=== PATIENT | female | born 1950 | race Caucasian/White ===

== ENCOUNTER 2021-08-13 09:24 | Emergency (ER) | payer OTHER ==
[2021-08-13] MEDS ORDERED: ONDANSETRON 4 MG/2 ML VIAL ONE (10:15)
[2021-08-13] MEDS ORDERED: FENTANYL CITR 100 MCG/2 ML ONE (10:15)
[2021-08-13 10:30] LABS: Absolute Lymphocytes (CBC) 1.6 K/uL (0.7-4.9); Basophils % 0.4 % (0-1.3); Hematocrit 41.6 % (36.0-45.0); Lymphocytes % 21.7 % (15.3-44.8); RBC Red Blood Cell Count 4.55 M/uL (3.86-4.86)
[2021-08-13 10:35] LABS: Protime INR 2.19
[2021-08-13 10:50] LABS: ALT/SGPT 20 U/L (12-78); AST/SGOT 13 U/L (15-37); Albumin 3.5 g/dL (3.4-5.0); Alkaline Phosphatase 107 U/L (45-117); BUN Blood Urea Nitrogen 21 mg/dL (7-18); Bicarbonate 21 mmol/L (21-32); Bilirubin Direct 0.1 mg/dL (0-0.2); Bilirubin Total 0.6 mg/dL (0.2-1.0); Glucose Level 103 mg/dL (74-106); Magnesium 2.4 mg/dL (1.8-2.4); NT PRO-BNP 255 pg/mL (<125); Potassium 4.1 mmol/L (3.5-5.1); Protein, Total 7.8 g/dL (6.4-8.2); Sodium Level 143 mmol/L (136-145); Troponin (Emerg Dept Use Only) < 0.02 ng/mL (0.0-0.045)
--- NOTE | 2021-08-13 11:28 | RAD REPORT ---
EXAM DESCRIPTION: RAD - Chest Single View - 08/13/2021 10:40 am CLINICAL HISTORY: left shoulder pain COMPARISON: <Comparisons> FINDINGS: Lines: None. Lungs: No evidence of edema or pneumonia. Pleural: No significant pleural effusions or pneumothorax. Cardiac: The heart size is within normal limits. Bones: No acute fractures. Other: IMPRESSION: No acute cardiopulmonary disease.
--- NOTE | 2021-08-13 13:20 | ER ---
Nurse's Notes [facility] Name: Henny Strauss Age: 71 yrs Sex: Female : 1950 Arrival Date: 08/13/2021 Time: 09:26 Bed 12 Private MD: Diagnosis: Pain in left shoulder;Muscle spasm of back-left trapezius Presentation: 08/13 09:49 Chief complaint: Patient states: My left shoulder has started to hurt over the past ld1 month, today it is hurting worse. Pt denies injury to left shoulder. Coronavirus screen: At this time, the client does not indicate any symptoms associated with coronavirus-19. Ebola Screen: No symptoms or risks identified at this time. Initial Sepsis Screen: Does the patient meet any 2 criteria? No. Patient's initial sepsis screen is negative. Does the patient have a suspected source of infection? No. Patient's initial sepsis screen is negative. Risk Assessment: Do you want to hurt yourself or someone else? Patient reports no desire to harm self or others. Onset of symptoms was August 13, 2021. 09:49 Method Of Arrival: Ambulatory ld1 09:49 Acuity: JEANETTE 3 ld1 Triage Assessment: 09:58 General: Appears in no apparent distress. comfortable, Behavior is calm, cooperative, ld1 appropriate for age. Pain: Complains of pain in posterior aspect of left shoulder Pain does not radiate. Pain currently is 8 out of 10 on a pain scale. Quality of pain is described as sharp, throbbing, grinding Pain began x 1 month Is continuous. EENT: No signs and/or symptoms were reported regarding the EENT system. Neuro: Level of Consciousness is awake, alert, obeys commands, Oriented to person, place, time, situation, Appropriate for age. Cardiovascular: Capillary refill < 3 seconds Patient's skin is warm and dry. Respiratory: Airway is patent Respiratory effort is even, unlabored, Respiratory pattern is regular, symmetrical. GI: Abdomen is flat, non-distended. : No signs and/or symptoms were reported regarding the genitourinary system. Derm: No signs and/or symptoms reported regarding the dermatologic system. Musculoskeletal: Reports pain in anterior aspect of left shoulder. Historical: - Allergies: 09:58 Tylenol-Codeine; ld1 - PMHx: 09:58 Atrial fibrillation; ld1 - Immunization history:: Adult Immunizations up to date, Client reports receiving the 2nd dose of the Covid vaccine. - Social history:: Smoking status: Patient denies any tobacco usage or history of. Patient/guardian denies using alcohol. Screenin:02 Abuse screen: Denies threats or abuse. Denies injuries from another. Nutritional ld1 screening: No deficits noted. Tuberculosis screening: No symptoms or risk factors identified. Fall Risk None identified. Assessment: 10:02 Reassessment: See triage assessment. ld1 10:24 Reassessment: Patient appears in no apparent distress at this time. Patient and/or ld1 family updated on plan of care and expected duration. Pain level reassessed. Patient is alert, oriented x 3, equal unlabored respirations, skin warm/dry/pink. 11:41 Reassessment: Patient appears in no apparent distress at this time. Patient and/or ld1 family updated on plan of care and expected duration. Pain level reassessed. Patient is alert, oriented x 3, equal unlabored respirations, skin warm/dry/pink. Patient denies pain at this time. Patient states feeling better. 13:14 Reassessment: Patient appears in no apparent distress at this time. No changes from ld1 previously documented assessment. Patient and/or family updated on plan of care and expected duration. Pain level reassessed. Patient is alert, oriented x 3, equal unlabored respirations, skin warm/dry/pink. Vital Signs: 09:49 BP 157 / 74; Pulse 67; Resp 18; Temp 98.7(TE); Pulse Ox 100% on R/A; Weight 79.83 kg; ld1 Height 5 ft. 5 in. (165.10 cm); Pain 8/10; 10:24 BP 124 / 82; Pulse 84; Resp 15; Pulse Ox 100% on R/A; Pain 2/10; ld1 11:41 BP 146 / 69; Pulse 57; Resp 21; Pulse Ox 100% on R/A; ld1 13:14 BP 134 / 76; Pulse 67; Resp 21; Pulse Ox 100% on R/A; ld1 09:49 Body Mass Index 29.29 (79.83 kg, 165.10 cm) ld1 ED Course: 09:26 Patient arrived in ED. mr 09:38 Merced Bal, RN is Primary Nurse. ld1 09:44 Edu Mills, MATT is PHCP. pm1 09:44 Fran Gan MD is Attending Physician. pm1 09:53 Triage completed. ld1 09:58 Arm band placed on right wrist. ld1 10:02 Patient has correct armband on for positive identification. Placed in gown. Bed in low ld1 position. Call light in reach. Side rails up X2. Pulse ox on. NIBP on. Door closed. Noise minimized. Warm blanket given. 10:02 No provider procedures requiring assistance completed. ld1 10:15 Initial lab(s) drawn, by me, sent to lab. Inserted saline lock: 20 gauge in right dh3 antecubital area, using aseptic technique. Blood collected. 10:40 XRAY Chest (1 view) In Process Unspecified. EDMS 13:25 IV discontinued, intact, bleeding controlled, No redness/swelling at site. Pressure ld1 dressing applied. Administered Medications: 10:24 Drug: fentaNYL (PF) 25 mcg Route: IVP; Site: right antecubital; ld1 10:24 Follow up: Response: No adverse reaction ld1 10:24 Drug: Zofran (Ondansetron) 4 mg Route: IVP; Site: right antecubital; ld1 10:24 Follow up: Response: No adverse reaction ld1 Outcome: 13:20 Discharge ordered by MD. pm1 13:25 Discharged to home ambulatory, with family. ld1 13:25 Condition: stable 13:25 Discharge instructions given to patient, family, Instructed on discharge instructions, follow up and referral plans. Demonstrated understanding of instructions, follow-up care. 13:25 Patient left the ED. ld1 Signatures: Dispatcher [employer] EDSC Paula VilchisEdu, MATT CMV DRIVER pm1 Edna Farmer [facility] Merced Bal RN RN ld1 Corrections: (The following items were deleted from the chart) 09:59 09:58 PMHx: Atrial fibrillation; ld1 ld1 09:59 09:58 PSHx: Right knee replacement; ld1 ld1 13:36 09:49 Acuity: JEANETTE 4 ld1 ld1
--- NOTE | 2021-08-13 13:20 | EDPHYS ---
Physician Documentation [facility] Name: Henny Strauss Age: 71 yrs Sex: Female : 1950 Arrival Date: 08/13/2021 Time: 09:26 Bed 12 Private MD: ED Physician Fran Gan HPI: 08/13 10:16 This 71 yrs old Female presents to ER via Ambulatory with complaints of Left pm1 shoulder pain. 10:16 The patient or guardian complains of pain. left shoulder and left trapezius. Context: pm1 The problem was sustained at an unknown site, resulted from an unknown reason, The patient experiences decreased range of motion, when attempts to raise arm, The patient reports no obvious deformity. Onset: The symptoms/episode began/occurred 1 month(s) ago, and became worse today. Modifying factors: the symptoms are alleviated by OTC meds, tylenol, The symptoms are aggravated by movement. Associated signs and symptoms: Pertinent negatives: abdominal pain, chest pain, Numbness in left arm shortness of breath, tingling, Weakness in left arm. Severity of symptoms: in the emergency department the symptoms are actually worse. Treatment prior to arrival includes: over the counter medications, Tylenol. The patient has not recently seen a physician. Historical: - Allergies: :58 Tylenol-Codeine; ld1 - PMHx: 09:58 Atrial fibrillation; ld1 - Immunization history:: Adult Immunizations up to date, Client reports receiving the 2nd dose of the Covid vaccine. - Social history:: Smoking status: Patient denies any tobacco usage or history of. Patient/guardian denies using alcohol. ROS: 10:16 Constitutional: Negative for fever, chills, and weight loss. pm1 10:16 Cardiovascular: Negative for chest pain, palpitations, and edema, Respiratory: Negative for shortness of breath, cough, wheezing, and pleuritic chest pain, Abdomen/GI: Negative for abdominal pain, nausea, vomiting, diarrhea, and constipation, Back: Negative for injury and pain. 10:16 Skin: Negative for injury, rash, and discoloration, Neuro: Negative for headache, weakness, numbness, tingling, and seizure. 10:16 MS/extremity: Positive for decreased range of motion, pain, of the left trapezius and left shoulder, Crepitus with moving arm, Negative for deformity. 10:16 All other systems are negative. Exam: 10:16 Constitutional: This is a well developed, well nourished patient who is awake, alert, pm1 and in no acute distress. Head/Face: Normocephalic, atraumatic. 10:16 Skin: Warm, dry with normal turgor. Normal color with no rashes, no lesions, and no evidence of cellulitis. 10:16 Eyes: Exam is negative for acute changes, Extraocular movements: no acute changes, Conjunctiva: no acute changes, no injection. 10:16 ENT: Exam is negative for acute changes, Mouth: no acute changes, Lips: normal, moist, Oral mucosa: normal, pink and intact, moist. 10:16 Neck: External neck: tenderness, of the left trapezius, C-spine: no acute changes. 10:16 Cardiovascular: Exam negative for acute changes, Rate: normal, Rhythm: regular, Pulses: no pulse deficits are appreciated. 10:16 Respiratory: Exam negative for acute changes, respiratory distress, shortness of breath. 10:16 Abdomen/GI: Inspection: abdomen appears normal, Palpation: abdomen is soft and non-tender, in all quadrants. 10:16 Back: muscle spasm, is appreciated in the left trapezius. 10:16 Musculoskeletal/extremity: Extremities: grossly normal except: noted in the left shoulder: tenderness, Decreased range of motion with abduction due to pain. Crepitus to left shoulder with rotation. 10:16 Neuro: Exam negative for acute changes, Orientation: is normal, Mentation: is normal, Motor: is normal, moves all fours. Vital Signs: 09:49 BP 157 / 74; Pulse 67; Resp 18; Temp 98.7(TE); Pulse Ox 100% on R/A; Weight 79.83 kg; ld1 Height 5 ft. 5 in. (165.10 cm); Pain 8/10; 10:24 BP 124 / 82; Pulse 84; Resp 15; Pulse Ox 100% on R/A; Pain 2/10; ld1 11:41 BP 146 / 69; Pulse 57; Resp 21; Pulse Ox 100% on R/A; ld1 13:14 BP 134 / 76; Pulse 67; Resp 21; Pulse Ox 100% on R/A; ld1 09:49 Body Mass Index 29.29 (79.83 kg, 165.10 cm) ld1 MDM: 09:57 Patient medically screened. pm1 13:19 Data reviewed: vital signs. Data interpreted: Pulse oximetry: on room air is 100 %. pm1 Interpretation: normal. Counseling: I had a detailed discussion with the patient and/or guardian regarding: the historical points, exam findings, and any diagnostic results supporting the discharge/admit diagnosis, lab results, radiology results, the need for outpatient follow up, to return to the emergency department if symptoms worsen or persist or if there are any questions or concerns that arise at home. 08/13 10:14 Order name: Basic Metabolic Panel; Complete Time: 10:55 pm1 08/13 10:14 Order name: CBC with Diff; Complete Time: 10:38 pm1 08/13 10:14 Order name: LFT's; Complete Time: 10:55 pm1 08/13 10:14 Order name: Magnesium; Complete Time: 10:55 pm1 08/13 10:14 Order name: NT PRO-BNP; Complete Time: 10:55 pm1 08/13 10:14 Order name: PT-INR; Complete Time: 10:38 pm1 08/13 10:14 Order name: Troponin (emerg Dept Use Only); Complete Time: 10:55 pm1 08/13 10:14 Order name: XRAY Chest (1 view); Complete Time: 11:35 pm1 08/13 10:14 Order name: EKG; Complete Time: 10:15 pm1 08/13 10:14 Order name: Cardiac monitoring; Complete Time: 10:23 pm1 08/13 10:14 Order name: EKG - Nurse/Tech; Complete Time: 10:23 pm1 08/13 10:14 Order name: IV Saline Lock; Complete Time: 10:23 pm1 08/13 10:14 Order name: Labs collected and sent; Complete Time: 10:23 pm1 08/13 10:14 Order name: O2 Per Protocol; Complete Time: 10:23 pm1 08/13 10:14 Order name: O2 Sat Monitoring; Complete Time: 10:23 pm1 Administered Medications: 10:24 Drug: fentaNYL (PF) 25 mcg Route: IVP; Site: right antecubital; ld1 10:24 Follow up: Response: No adverse reaction ld1 10:24 Drug: Zofran (Ondansetron) 4 mg Route: IVP; Site: right antecubital; ld1 10:24 Follow up: Response: No adverse reaction ld1 Disposition Summary: 08/13/21 13:20 Discharge Ordered Location: Home pm1 Problem: new pm1 Symptoms: have improved pm1 Condition: Stable pm1 Diagnosis - Pain in left shoulder pm1 - Muscle spasm of back - left trapezius pm1 Followup: pm1 - With: Emergency Department - When: As needed - Reason: Worsening of condition Followup: pm1 - With: Private Physician - When: 2 - 3 days - Reason: Recheck today's complaints, Continuance of care, Re-evaluation by your physician Discharge Instructions: - Discharge Summary Sheet pm1 - Muscle Cramps and Spasms pm1 - Shoulder Pain pm1 - Heat Therapy pm1 Forms: - Medication Reconciliation Form pm1 - Thank You Letter pm1 - Antibiotic Education pm1 - Prescription Opioid Use pm1 Addendum: 08/22/2021 05:24 Co-signature as Attending Physician, Fran Gan MD PA/WOOD BOX MAKER's history reviewed, m a2 patient interviewed, and examined. I agree with assessment and care plan and confirm the diagnosis (es) above. Signatures: Dispatcher [employer] EDMS Edu Mills, WOOD BOX MAKER WOOD BOX MAKER pm1 Fran Gan MD MD ma2 Merced Bal RN RN ld1 Corrections: (The following items were deleted from the chart) 08/13 09:59 09:58 PMHx: Atrial fibrillation; ld1 ld1 09:59 09:58 PSHx: Right knee replacement; ld1 ld1
[2021-08-13 13:32] VITALS: TEMP 98.7; O2SAT 100
[2021-08-13 13:36] VITALS: BP 134/76
--- NOTE | 2021-08-15 18:31 | EKG ---
Test Date: 2021-08-13 Test Time: 10:15:24 Overhead Cleaner Maintainer: JOHANA MEASUREMENT RESULTS: Intervals: Rate: 111 GA: 176 QRSD: 86 QT: 342 QTc: 465 [place]: P: GA: 176 QRS: 53 T: 52 INTERPRETIVE STATEMENTS: Sinus tachycardia Nonspecific ST and T wave abnormality Abnormal ECG No previous ECG available for comparison Electronically Signed On 08-15-21 18:24:15 SOAKER HELPER by Arun Bowles
== END 2021-08-13 13:25 | disposition home or self-care (01) ==
LOC: ER 09:24
DX: M62.830 Muscle spasm of back (principal); Z88.5 Allergy status to narcotic agent
CPT/HCPCS: 93005; 85025; 80048; 36415; 83735; 85610; 80076; 84484; 83880; 71045; 96375; 96374; 99284; J3010; J2405

== ENCOUNTER 2021-09-26 09:23 | Emergency (ER) | payer OTHER ==
[2021-09-26] MEDS ORDERED: SMZ./TMP. 800/160 MG TABLET ONE (10:51)
--- NOTE | 2021-09-26 11:07 | ER ---
Nurse's Notes [facility] Name: Henny Strauss Age: 71 yrs Sex: Female : 1950 Arrival Date: 09/26/2021 Time: 09:28 Bed 2 Private MD: Diagnosis: Acute upper respiratory infection, unspecified Presentation: 09/26 09:36 Chief complaint: Patient states: Sinus congestion and pain. Bilateral ear pain that ww started about 1-2 days ago. Coronavirus screen: Vaccine status: Patient reports receiving the 2nd dose of the covid vaccine. Client denies travel out of the [place] in the last 14 days. Ebola Screen: Patient negative for fever greater than or equal to 101.5 degrees Fahrenheit, and additional compatible Ebola Virus Disease symptoms Patient denies exposure to infectious person. Patient denies travel to an Ebola-affected area in the 21 days before illness onset. Initial Sepsis Screen: Does the patient meet any 2 criteria? No. Patient's initial sepsis screen is negative. Does the patient have a suspected source of infection? No. Patient's initial sepsis screen is negative. Risk Assessment: Do you want to hurt yourself or someone else? Patient reports no desire to harm self or others. Onset of symptoms was September 24, 2021. 09:36 Method Of Arrival: Ambulatory ww 09:36 Acuity: JEANETTE 4 ww Triage Assessment: 09:37 General: Appears in no apparent distress. comfortable, well groomed, well developed, ww well nourished, Behavior is calm, cooperative, appropriate for age. Pain: Complains of pain in right cheek, right ear, nose, left ear and left cheek. EENT: Reports nasal congestion. Neuro: Level of Consciousness is awake, alert, obeys commands, Oriented to person, place, time, situation, Appropriate for age Speech is normal. Cardiovascular: No deficits noted. Capillary refill < 3 seconds. Respiratory: No deficits noted. Airway is patent Respiratory effort is even, unlabored, Respiratory pattern is regular, symmetrical. GI: No deficits noted. No signs and/or symptoms were reported involving the gastrointestinal system. : No deficits noted. No signs and/or symptoms were reported regarding the genitourinary system. Derm: No deficits noted. No signs and/or symptoms reported regarding the dermatologic system. Skin is intact, Skin is pink, warm \\T\\ dry. Historical: - Allergies: 09:37 Azithromycin; ww 09:37 PENICILLINS; ww 09:37 Codeine; ww - PMHx: 09:37 Atrial fibrillation; ww - PSHx: 09:37 Tubal; knee replacement; ww - Immunization history:: Client reports receiving the 2nd dose of the Covid vaccine, Flu vaccine is not up to date. - Social history:: Smoking status: Patient denies any tobacco usage or history of. - Family history:: not pertinent. Screenin:03 Abuse screen: Denies threats or abuse. Nutritional screening: No deficits noted. al4 Tuberculosis screening: No symptoms or risk factors identified. Fall Risk Fall Risk No fall in past 12 months (0 pts). No IV (0 pts). Ambulatory Aid- Crutches/Cane/Walker (15 pts). Gait- Weak (10 pts.). Mental Status- Oriented to own ability (0 pts). Total Caicedo Fall Scale indicates Low Risk Score (25-44 pts). Assessment: 09:58 General: Appears in no apparent distress. comfortable, Behavior is calm, cooperative, al4 appropriate for age. Pain: Denies pain. Neuro: Level of Consciousness is awake, alert, obeys commands, Oriented to person, place, time, situation. Cardiovascular: Heart tones present Capillary refill < 3 seconds Patient's skin is warm and dry. Respiratory: Airway is patent Respiratory effort is even, unlabored, Respiratory pattern is regular, symmetrical, Breath sounds are clear bilaterally. GI: No signs and/or symptoms were reported involving the gastrointestinal system. : No signs and/or symptoms were reported regarding the genitourinary system. EENT: Reports nasal congestion since "2 days ago" Bilateral ear pain, drainage, and fullness that started 2 days ago. . Derm: No signs and/or symptoms reported regarding the dermatologic system. Musculoskeletal: No signs and/or symptoms reported regarding the musculoskeletal system. 11:00 Reassessment: No changes from previously documented assessment. Patient and/or family al4 updated on plan of care and expected duration. Pain level reassessed. Patient is alert, oriented x 3, equal unlabored respirations, skin warm/dry/pink. Patient denies pain at this time. 11:28 Reassessment: Please call Tom () with test results: [phone]. al4 Vital Signs: 09:36 BP 136 / 60; Pulse 70; Resp 18; Temp 97.8(O); Pulse Ox 100% on R/A; Weight 77.11 kg ww (R); Height 5 ft. 4 in. (162.56 cm); 11:15 BP 163 / 62; Pulse 62; Resp 14 S; Pulse Ox 100% on R/A; Pain 0/10; al4 09:36 Body Mass Index 29.18 (77.11 kg, 162.56 cm) ED Course: 09:28 Patient arrived in ED. am2 09:37 Triage completed. ww 09:37 Arm band placed on right wrist. ww 10:00 Francis Harkins MD is Attending Physician. marcelo 10:19 Francisco Tomlinson is Primary Nurse. al4 11:00 Bed in low position. Call light in reach. patients at bedside. al4 11:27 COVID-19/FLU A+B/RSV (Document "Date of Onset" if Symptomatic) Sent. al4 11:44 No provider procedures requiring assistance completed. Patient did not have IV access al4 during this emergency room visit. Administered Medications: 11:15 Drug: Bactrim (trimethoprim-sulfamethoxazole) (160 mg-800 mg (DS) 1 tablet Route: PO; al4 11:44 Follow up: Response: No adverse reaction al4 Outcome: 11:06 Discharge ordered by . [facility] 11:44 Discharged to home ambulatory, with significant other. al4 11:44 Condition: stable 11:44 Discharge instructions given to patient, significant other, Instructed on discharge instructions, follow up and referral plans. medication usage. 11:49 Patient left the ED. al4 Signatures: Francis Harkins MD MD cha Moreno, Amanda Francisco Ruiz al4 Taryn Winn, RN RN ww Corrections: (The following items were deleted from the chart) 10:21 09:58 EENT: Reports nasal congestion since "2 days ago" al4 al4 11:33 11:15 BP 163 / 62; Pulse 62bpm; Resp 20bpm; Pulse Ox 100%; Pain 0/10; al4 al4 11:44 11:15 BP 163 / 62; Pulse 62bpm; Resp 20bpm; Spontaneous; Pulse Ox 100% RA; Pain 0/10; al4 al4 11:48 10:03 Fall Risk al4 al4
--- NOTE | 2021-09-26 11:07 | EDPHYS ---
Physician Documentation [facility] Name: Henny Strauss Age: 71 yrs Sex: Female : 1950 Arrival Date: 09/26/2021 Time: 09:28 Bed 2 Private MD: CATALINO Physician Francis Harkins HPI: 09/26 11:02 This 71 yrs old Female presents to ER via Ambulatory with complaints of Sinus marcelo Congestion. 11:02 The patient or guardian reports cough, described as mild. Onset: The symptoms/episode marcelo began/occurred 23 day(s) ago. Severity of symptoms: At their worst the symptoms were mild, in the emergency department the symptoms are unchanged. Modifying factors: The symptoms are alleviated by nothing, the symptoms are aggravated by nothing. Associated signs and symptoms: Pertinent positives: rhinorrhea. The patient has experienced similar episodes in the past, a few times. Historical: - Allergies: 09:37 Azithromycin; ww 09:37 PENICILLINS; ww 09:37 Codeine; ww - PMHx: 09:37 Atrial fibrillation; ww - PSHx: 09:37 Tubal; knee replacement; ww - Immunization history:: Client reports receiving the 2nd dose of the Covid vaccine, Flu vaccine is not up to date. - Social history:: Smoking status: Patient denies any tobacco usage or history of. - Family history:: not pertinent. ROS: 11:02 Constitutional: Negative for fever, chills, and weight loss, Eyes: Negative for injury, marcelo pain, redness, and discharge, Neck: Negative for injury, pain, and swelling, Cardiovascular: Negative for chest pain, palpitations, and edema, Respiratory: Negative for shortness of breath, cough, wheezing, and pleuritic chest pain, Abdomen/GI: Negative for abdominal pain, nausea, vomiting, diarrhea, and constipation, Back: Negative for injury and pain, : Negative for injury, bleeding, discharge, and swelling, MS/Extremity: Negative for injury and deformity, Skin: Negative for injury, rash, and discoloration, Neuro: Negative for headache, weakness, numbness, tingling, and seizure. 11:02 ENT: Positive for nasal discharge, rhinorrhea. Exam: 11:02 Constitutional: This is a well developed, well nourished patient who is awake, alert, marcelo and in no acute distress. Head/Face: Normocephalic, atraumatic. Eyes: Pupils equal round and reactive to light, extra-ocular motions intact. Lids and lashes normal. Conjunctiva and sclera are non-icteric and not injected. Cornea within normal limits. Periorbital areas with no swelling, redness, or edema. ENT: Nares patent. No nasal discharge, no septal abnormalities noted. Tympanic membranes are normal and external auditory canals are clear. Oropharynx with no redness, swelling, or masses, exudates, or evidence of obstruction, uvula midline. Mucous membranes moist. Neck: Trachea midline, no thyromegaly or masses palpated, and no cervical lymphadenopathy. Supple, full range of motion without nuchal rigidity, or vertebral point tenderness. No Meningismus. Chest/axilla: Normal chest wall appearance and motion. Nontender with no deformity. No lesions are appreciated. Cardiovascular: Regular rate and rhythm with a normal S1 and S2. No gallops, murmurs, or rubs. Normal PMI, no JVD. No pulse deficits. Respiratory: Lungs have equal breath sounds bilaterally, clear to auscultation and percussion. No rales, rhonchi or wheezes noted. No increased work of breathing, no retractions or nasal flaring. Abdomen/GI: Soft, non-tender, with normal bowel sounds. No distension or tympany. No guarding or rebound. No evidence of tenderness throughout. Back: No spinal tenderness. No costovertebral tenderness. Full range of motion. Skin: Warm, dry with normal turgor. Normal color with no rashes, no lesions, and no evidence of cellulitis. MS/ Extremity: Pulses equal, no cyanosis. Neurovascular intact. Full, normal range of motion. Neuro: Awake and alert, GCS 15, oriented to person, place, time, and situation. Cranial nerves II-XII grossly intact. Motor strength 5/5 in all extremities. Sensory grossly intact. Cerebellar exam normal. Normal gait. Psych: Awake, alert, with orientation to person, place and time. Behavior, mood, and affect are within normal limits. Vital Signs: 09:36 BP 136 / 60; Pulse 70; Resp 18; Temp 97.8(O); Pulse Ox 100% on R/A; Weight 77.11 kg ww (R); Height 5 ft. 4 in. (162.56 cm); 11:15 BP 163 / 62; Pulse 62; Resp 14 S; Pulse Ox 100% on R/A; Pain 0/10; al4 09:36 Body Mass Index 29.18 (77.11 kg, 162.56 cm) ww MDM: 10:00 Patient medically screened. [facility] 09/26 10:45 Order name: COVID-19/FLU A+B/RSV (Document "Date of Onset" if Symptomatic) [facility] Administered Medications: 11:15 Drug: Bactrim (trimethoprim-sulfamethoxazole) (160 mg-800 mg (DS) 1 tablet Route: PO; al4 11:44 Follow up: Response: No adverse reaction al4 Disposition Summary: 09/26/21 11:06 Discharge Ordered Location: Home [facility] Problem: new [facility] Symptoms: have improved [facility] Condition: Stable [facility] Diagnosis - Acute upper respiratory infection, unspecified marcelo Followup: [facility] - With: Private Physician - When: 2 - 3 days - Reason: Recheck today's complaints, Continuance of care, Re-evaluation by your physician Discharge Instructions: - Discharge Summary Sheet marcelo - Upper Respiratory Infection, Adult marcelo - Cool Mist Vaporizer [facility] - Upper Respiratory Infection, Adult, Pxpe-ze-[id number] [facility] - Cough, Adult [facility] Forms: - Medication Reconciliation Form [facility] - Thank You Letter [facility] - Antibiotic Education [facility] - Prescription Opioid Use [facility] Prescriptions: - Bromfed DM 2-30-10 mg/5 mL Oral syrup - take 7.5 milliliter by ORAL route every 6 hours; 160 milliliter; Refills: 0, [facility] Product Selection Permitted - Bactrim DS 800-160 mg Oral Tablet - take 1 tablet by ORAL route every 12 hours for 10 days; 20 tablet; Refills: 0, [facility] Product Selection Permitted Signatures: Dispatcher [employer] Francis Bashir MD MD cha Ledbetter, Alexis alTaryn Hinson, RN RN ww
[2021-09-26 11:54] VITALS: TEMP 97.8; O2SAT 100
[2021-09-26 11:55] VITALS: BP 163/62
[2021-09-26 12:34] LABS: SARS-COV-2 RT PCR NEGATIVE (NEGATIVE)
== END 2021-09-26 11:49 | disposition home or self-care (01) ==
LOC: ER 09:23
DX: J06.9 Acute upper respiratory infection, unspecified (principal); Z20.822 Contact with and (suspected) exposure to COVID-19; I48.91 Unspecified atrial fibrillation; Z88.0 Allergy status to penicillin; Z88.1 Allergy status to other antibiotic agents; Z88.5 Allergy status to narcotic agent
CPT/HCPCS: 0241U; 99283

== ENCOUNTER 2023-02-13 14:05 | Inpatient (IN) | payer OTHER ==
[2023-02-14] MEDS ORDERED: ACETAMINOPHEN 325 MG TABLET PO PRN (11:17)
[2023-02-14] MEDS ORDERED: IPRATROPIUM BROM 0.5MG/2.5ML NEB PRN ×2 (11:30→16:00)
[2023-02-14] MEDS ORDERED: POLYETHYL GLY 3350 17 GM/DOSE PO PRN (11:36)
[2023-02-14 13:30] VITALS: BMI 24.8
[2023-02-14 14:58] LABS: Potassium 3.7 mEq/L (3.5-5.1)
[2023-02-14] MEDS: RIVAROXABAN 10 MG TABLET PO SCH (17:29)
[2023-02-14] MEDS: CEFEPIME 1 GM in NA CHLORIDE 0.9% 100 ML IV SCH (17:30)
[2023-02-14] MEDS: ATORVASTATIN 80 MG TAB PO SCH (19:50)
[2023-02-14] MEDS: MELATONIN 3 MG TABLET PO SCH (19:50)
[2023-02-14] MEDS: DOCUSATE NA/SENNA CONC 1 TAB PO SCH (19:50)
[2023-02-14] MEDS: NYSTATIN PWDR 100000 UNIT/GM TOP SCH (19:52)
[2023-02-14] MEDS ORDERED: NA CHLORIDE 0.9% 250 ML ONE (21:25)
[2023-02-15] MEDS: CEFEPIME 1 GM in NA CHLORIDE 0.9% 100 ML IV SCH ×3 (00:25→17:33)
--- NOTE | 2023-02-15 03:33 | HP ---
Date of Admission: 02/14/2023 Jepr-dl-Tawe History and Physical. Time Of Service: 1 p.m. Chief Complaint: "I am very weak. I have pain in my belly." History Of Present Illness: Ms. Strauss is a 72-year-old right-handed patient with coronary artery di sease, atrial fibrillation, hypertension, dyslipidemia, and dementia, who has a complicated medical h istory due to multiple cardiovascular issues, systemic infections, placement of drains. She was init ially admitted to [facility] for elective coronary artery evaluation and treatment in November 2022 when she was identified to have 3-vessel coronary artery disease with coronary artery bypass grafting being required. However, her workup revealed significant comorbidities and that was delayed. She developed a retroperitoneal bleed due to femoral artery injury and had vascular interve ntion for arterial repair. She was transferred to [facility] in [place] for assisted, t hen sent by EMS to [facility] due to fever and altered mental status. She was found to have a right anteri or pelvic abscess and hypocalcemia. She did have a drain placed at [facility] on 01/11/2023. Th is was further complicated by an abscess with E coli in the intraabdominal area. The drain was excha nged and she was eventually transferred to [facility] for continued antibiotics and close medical management. She did require cefepime and vancomycin and that is to continue until February 21, and today is February 14. She also requires aggressive wound care and Xarelto for atrial fibrill ation. She requires significant pain management and drain management. Due to her complicated and pr olonged hospitalization, she has developed significant debility and now requires aggressive physical and occupational along with speech therapy to help her return towards baseline. She also needs caref assisted management for her wound VAC and bilateral pressure ulcers on the buttocks due to prolonged extended peers in the bed. She has very poor p.o. intake and is malnourished and anemic an d also has confusion with dizziness, significant decrease and decline in mobility and in her ability to perform her activities of daily living. Due to these reasons, she is determined to be a more appr opriate candidate for inpatient rehabilitation versus admission to assisted facility. Past Medical History: Atrial fibrillation, hypertension, dyslipidemia, depression, anxiety, dementia , osteoarthritis, multivessel coronary artery disease. She is still awaiting coronary artery bypass grafting. She has intraabdominal abscess with a wound VAC in place. She has 2 antibiotics to contin ue for the next 7 days. Past Surgical History: Appendectomy, tonsillectomy, tubal ligation, right knee surgery. Allergies: CODEINE, ERYTHROMYCIN, AND PENICILLIN. Family History: Not pertinent. Social History: No alcohol, tobacco, or IV drug use. She does have a family and lives with family. X-ray/imaging: On February 05, a CT scan of the abdomen and pelvis showed a right pelvis fluid collection, consistent with abscess and a surgical drain coiling in place. Laboratory Studies: White blood cell count 8.79, hemoglobin 10.2, hematocrit 30.3, platelets 240. S odium 137, potassium 4.5, glucose 84, BUN 16, creatinine 0.71, calcium 8.1, albumin 2.7. Current Medications: Tylenol 650 every 6 hours as needed, Cordarone 100 mg daily, Artificial Tears 1 drop in each eye daily, aspirin 81 mg daily, Lipitor 80 mg at bedtime, cefepime 1 g every 8 hours fo r the next 7 days, Atrovent nebulizer 0.5 mg nebulized every 6 hours as needed, melatonin 3 mg at bed time, Mobic 15 mg daily, nystatin power apply topically twice daily as needed, Xarelto 10 mg daily, S enokot-S 2 at bedtime, vancomycin 1 g every 24 hours. Review of Systems: Ms. Strauss notes, some pain in the abdominal area where the drain is in place, myalgias and arthralgi as. She denies rash, any headaches, some depression . She does not have any current fever s or chills. No active genitourinary or gastrointestinal complaints and no other positives other wilbur n stated. Physical Examination: Vital Signs: Blood pressure 114/54, pulse 70, respiratory rate 16, temperature 98.6, ox saturation 9 8%. General: Ms. Strauss is resting in bed. She has no significant distress. She does appear normal. HEENT: She does have poor dentition. Otherwise, she appears normocephalic, atraumatic. Sclerae ani cteric. Oropharynx is moist. Neck: Supple. Chest: Decreased breath sounds bilaterally. Abdomen: Obese. Extremities: Show no significant edema or cyanosis. Neurological: She is alert and oriented to situation as well as some commands. Cranial nerves, no f ocal deficits. She is diffusely weak in upper and lower extremities. Stocking-glove loss to light t ouch and temperature. Functional Ability: Current level of functioning: Today, she did sit to stand transfers with minimu m assistance using a rolling walker; supine to sit transfers, done with minimum assistance for trunca l assistance. With gait, she ambulated 200 feet, 100 feet, and 75 feet with contact guard assistance using a rolling walker. She ascended and descended 5 steps with contact guard assistance using bila teral handrails. With her occupational therapy, she did shower with contact guard assistance using nascimento ndheld shower seat in the tub bench. She did have fatigue during the task, upper body dressing, inde pendent; lower body dressing, moderate assistance; oral hygiene done with independence at the sink. She was evaluated by Speech Therapy with long-term goals of improving her cognitive functioning skill s to promote independence and to return home with 60% accuracy. Rehabilitation And Medical Assessment And Plan: Her rehabilitation impairment category is 03, brain dysfunction, nontraumatic. Her rehabilitation impairment group code is 02.1, nontraumatic. Her etio logic diagnosis is toxic metabolic encephalopathy. Active Diagnoses: Coronary artery disease, dementia, dyslipidemia, hypertension, hypercalcemia, and insomnia, in addition to pelvic abscess with wound VAC in place, need for multiple antibiotics, right kidney lesion, poor oral intake, atrial fibrillation. Plan: 1.She will have physical, occupational, and speech therapy 3.5 hours x7 days. 2.Xarelto 10 mg daily for atrial fibrillation. 3.Senokot S for constipation. 4.Vancomycin and cefepime as indicated for abdominal abscess with a wound VAC. 5.Lipitor 80 mg at night for dyslipidemia. 6.Artificial Tears for dry eyes. 7.Amiodarone 100 mg daily for hypertension. 8.Ipratropium nebulizer for shortness of breath and pulmonary congestion. 9.Mobic for arthritic pain. 10.Senokot-S for constipation. Impact Of Comorbidities: Given her drain and abscess, she may require imaging of the abdominal area such as KUB to assess the deficiency of the drain for removing excess fluid and effectiveness of the antibiotics. White blood cell count will be followed carefully and if need be, Procalcitonin and lac tic acid will be checked to rule out any potential systemic infection. She also has coronary artery disease on multiple vessels and therefore, is at risk for myocardial infarction. She is on Xarelto a nd aspirin, this will be continued. Rehab Specific Plan: As noted, she will have 3.5 hours 5 of 7 days for physical, occupational, and s peech therapy to improve her gait, balance, strength, coordination, activities of daily living, and a mbulating 250 feet with independence and going up and down 10 steps with independence. Also to perfo rm cognitive functioning independently. In addition, she will have assisted to address all th e issues as mentioned, including wound VAC, assessing risk of worsening infection, and nutrition stat us following blood work and vital signs. Next, she has a good understanding of the reason for her ad mission to the inpatient rehabilitation unit and the interdisciplinary approach, which will be used. She has a potential to make improvement and is in need of the 3 disciplines; physical, occupational, and speech therapy. Additionally if need be help from the Respiratory Service, Cardiac Service, Nut rition Service, Wound Care Service given her decubital wounds will be sought. Given her complex medi janice condition and risk of further complications, rehabilitation cannot be safely or effectively provi ded at a lower level of care such as assisted. Barriers To Discharge: She does have wound VAC, but that wound VAC will be assessed and treated appr opriately. She also has coronary artery disease with 3 vessels being significantly obstructed that r equire bypass. She will continue with anticoagulation. EKG may be done if need be. Estimated Length Of Stay: Length of stay is about 12 days. Disposition: Home. Prognosis: Good, despite her multiple comorbidities. Rehabilitation Goals: 1.Become independent with upper and lower body dressing. 2.Independent with toileting, transferring, showering. 3.Independent with ambulating 250 feet with a rolling walker. 4.Independent with up and down 10 steps. 5.Independent with cognitive functioning. 6.Having all of her medical conditions managed adequately. I acknowledge I have personally performed a full physical examination on the patient, Henny Strauss, no later than 24 hours after admission to the inpatient facility and determined that she is able to tolerate the above course of treatment at an intensive level for a reasonable period of time. A deta iled individualized plan of care for her will be completed by hospital day 4 based on the pre-admissi on screen history and physical, and therapy evaluations thank you. HOA Voice ID: [id number]
[2023-02-15 04:19] LABS: Absolute Lymphocytes (CBC) 2.3 K/uL (0.7-4.9); MCV 91.2 fL (80-100); MPV 8.5 fL (7.6-11.3); RBC Red Blood Cell Count 3.51 M/uL (3.86-4.86)
[2023-02-15 04:34] LABS: Albumin 2.3 g/dL (3.4-5.0); Magnesium 2.1 mg/dL (1.6-2.4); Potassium 3.5 mEq/L (3.5-5.1)
[2023-02-15] MEDS: [UNRECOGNIZED DRUG - OTHER] TOP SCH (08:00)
[2023-02-15] MEDS: DOCUSATE NA/SENNA CONC 1 TAB PO SCH ×3 (08:00→19:12)
[2023-02-15] MEDS: AMIODARONE HCL 200 MG TAB PO SCH (09:08)
[2023-02-15] MEDS: ASPIRIN 81 MG CHEWABLE TABLET PO SCH (09:08)
[2023-02-15] MEDS: NYSTATIN PWDR 100000 UNIT/GM TOP SCH ×2 (09:09→19:09)
[2023-02-15] MEDS: MELOXICAM 7.5 MG TAB PO SCH (09:12)
[2023-02-15] MEDS: POLYVINYL ALCOHOL 1.4% 15 ML EACH EYE SCH (09:12)
[2023-02-15] MEDS: VANCOMYCIN 1 GM in NA CHLORIDE 0.9% 250 ML IVPB SCH (15:02)
[2023-02-15] MEDS: RIVAROXABAN 10 MG TABLET PO SCH (17:33)
[2023-02-15] MEDS: MELATONIN 3 MG TABLET PO SCH (19:09)
[2023-02-15] MEDS: ATORVASTATIN 80 MG TAB PO SCH (19:09)
--- NOTE | 2023-02-15 21:15 | PN ---
Gboe-Qt-Tvpz Progress Note Visit Subjective: Ms. Strauss is resting comfortably in bed, in no significant distress. She appears to nascimento ve no complaints in terms of face, arm, and leg numbness or weakness. Confusion is improving. No di fficulty with sleep, eating. No bowel movement issues. Review of Systems: No fevers, chills, nausea, vomiting, myalgias, arthralgias, rash, headache, or weight change. No act sylvia psychiatric issues. No genitourinary issues. Physical Examination: Vital Signs: Blood pressure 117/56, pulse 64, respiratory rate 15, temperature 97.2, and oxygen satu ration 98%. Neurologic: Ms. Strauss has no focal deficits in the face, arm, or legs. She has diffuse weakness, m ore proximal and distal in the upper and lower extremities. Her confusion is clearing significantly. Laboratory Studies: White blood cell count 9.6, hemoglobin 10.5, hematocrit 32, and platelets 274. Sodium 140, potassium 3.5, chloride 112, carbon dioxide 23, BUN 25, creatinine 1.03, glucose 97, calc ium 8.3, magnesium 2.1, prealbumin 20, and albumin 2.3. Vancomycin trough is 15.6, yesterday it was elevated to 27.2. X-ray/imaging: No new x-ray or imaging. Medications: Tylenol 650 every 6 hours as needed, Cordarone 100 mg daily, Artificial Tears 1 drop in each eye daily, aspirin 81 mg daily, Lipitor 80 mg at bedtime, cefepime 1 g every 8 hours IV, ipratr opium 0.5 nebulizer every 6 hours as needed, melatonin 3 mg at bedtime, Mobic 15 mg daily, Xarelto 10 mg daily, Senokot-S 2 at bedtime, and vancomycin 1 g every 24 hours. Current Functional Status: Today she ambulated 400 feet, 200 feet, and another 300 feet with contact guard to standby assistance using a rolling walker. Cwuinn-pn-mxy transfers done with minimum kaye tance. Multiple kkm-hp-[id number] transfers with contact guard assistance using a rolling walker. She di d tolerate 5 minutes of standing with a rolling walker to sort beads with no rest breaks. Independen t with brushing of teeth and washing of hands. Supervision for toilet hygiene. Supervision to use t he phone to talk to her . With her speech therapy, completed activities to improve short-term memory skills, working memory skills, auditory comprehension skills, and organization thinking skill s. She required maximum assistance with auditory comprehension and short-term memory tasks. She cou ld independently recall 1 of 3 unrelated objects after 2 attempts. She was able to do working memory tasks and sequencing tasks for 4 activities of daily living with minimum assistance. Progress Towards Rehabilitation Goals: Ms. Strauss is beginning to make fair progress with rehabilita tion goals especially with mobilization somewhat and also fair progress with her cognitive functionin g and performance of her activities of daily living. Assessment: Ms. Strauss is a 72-year-old patient in the rehabilitation unit with toxic metabolic ence phalopathy. She has coronary artery disease, dementia, dyslipidemia, hypertension, hyperlipidemia, a nd insomnia. There is a pelvic abscess with wound VAC and multiple antibiotics. There is right kidn ey lesion, poor oral intake, and atrial fibrillation. Plan: 1.Continue with physical, occupational, and speech therapy 3.5 hours, 5 of 7 days. 2.Xarelto 10 mg daily for atrial fibrillation. 3.Senokot-S for constipation. 4.Vancomycin and cefepime for abdominal abscess with a wound VAC. 5.Lipitor 80 mg at bedtime for dyslipidemia. 6.Amiodarone 100 mg daily for hypertension. 7.Ipratropium nebulizer as appropriate. 8.Mobic for arthritis. 9.Senokot-S for constipation. Comorbids That Continue To Impact Rehabilitation Process: At this point, she does have a wound VAC i n place and IV antibiotics and her schedule is being worked around that and she is able to complete a ll of her required therapy during the day. She does have multiple medications and those are not barriers and she is working around those very well. ROBYN/MODL Voice ID: [id number] Report ID: [id number]
[2023-02-16] MEDS: CEFEPIME 1 GM in NA CHLORIDE 0.9% 100 ML IV SCH ×3 (00:06→17:16)
[2023-02-16] MEDS: DOCUSATE NA/SENNA CONC 1 TAB PO SCH (08:00)
[2023-02-16] MEDS: [UNRECOGNIZED DRUG - OTHER] TOP SCH (08:00)
[2023-02-16] MEDS: ASPIRIN 81 MG CHEWABLE TABLET PO SCH (08:04)
[2023-02-16] MEDS: AMIODARONE HCL 200 MG TAB PO SCH (08:04)
[2023-02-16] MEDS: MELOXICAM 7.5 MG TAB PO SCH (08:05)
[2023-02-16] MEDS: POLYVINYL ALCOHOL 1.4% 15 ML EACH EYE SCH (08:05)
[2023-02-16] MEDS: NYSTATIN PWDR 100000 UNIT/GM TOP SCH ×2 (08:05→19:49)
--- NOTE | 2023-02-16 08:28 | P.RH.PN ---
Estimated Length of Stay: 9 Expected Discharge Date: 02/22/23 Discharge Disposition Plan: Home Family Support: Yes Newspaper Reporter Goal: Mobility, Transfers, Self Care Vital Signs: Last Vital Signs Temp 96.9 F 02/16/23 07:17 Pulse 69 02/16/23 07:17 Resp 17 02/16/23 07:17 BP 131/60 02/16/23 07:17 Pulse Ox 98 02/16/23 07:17 Laboratory: Laboratory Last Values WBC 9.60 thou/uL (4.3-10.9) 02/15/23 04:00 RBC 3.51 M/uL (3.86-4.86) L 02/15/23 04:00 Hgb 10.5 g/dL (12.0-15.0) L 02/15/23 04:00 Hct 32.0 % (36.0-45.0) L 02/15/23 04:00 MCV 91.2 fL (80-100) 02/15/23 04:00 MCH 30.0 pg (27.0-35.0) 02/15/23 04:00 MCHC 32.8 g/dL (32.0-36.0) 02/15/23 04:00 RDW 18.8 % (12.1-15.2) H 02/15/23 04:00 Plt Count 274 thou/uL (152-406) 02/15/23 04:00 MPV 8.5 fL (7.6-11.3) 02/15/23 04:00 Neutrophils % 61.3 % (41.7-73.7) 02/15/23 04:00 Lymphocytes % 24.0 % (15.3-44.8) 02/15/23 04:00 Monocytes % 8.5 % (3.3-12.3) 02/15/23 04:00 Eosinophils % 5.3 % (0-4.4) H 02/15/23 04:00 Basophils % 0.9 % (0-1.3) 02/15/23 04:00 Absolute Neutrophils 5.9 K/uL (1.8-8.0) 02/15/23 04:00 Absolute Lymphocytes 2.3 K/uL (0.7-4.9) 02/15/23 04:00 Absolute Monocytes 0.8 K/uL (0.1-1.3) 02/15/23 04:00 Absolute Eosinophils 0.5 K/uL (0-0.5) 02/15/23 04:00 Absolute Basophils 0.1 K/uL (0-0.5) 02/15/23 04:00 Sodium 140 mEq/L (136-145) 02/15/23 04:00 Potassium 3.5 mEq/L (3.5-5.1) 02/15/23 04:00 Chloride 112 mEq/L (98-107) H 02/15/23 04:00 Carbon Dioxide 25 mEq/L (21-32) 02/15/23 04:00 Anion Gap 6.5 mEq/L (5.0-15.0) 02/15/23 04:00 BUN 25 mg/dL (7-18) H 02/15/23 04:00 Creatinine 1.03 mg/dL (0.55-1.02) H 02/15/23 04:00 Est GFR (CKD-EPI) 58 ml/min (=/>90) L 02/15/23 04:00 Glucose 97 mg/dL (74-106) 02/15/23 04:00 Calcium 8.3 mg/dL (8.5-10.1) L D 02/15/23 04:00 Magnesium 2.1 mg/dL (1.6-2.4) 02/15/23 04:00 Albumin 2.3 g/dL (3.4-5.0) L 02/15/23 04:00 Prealbumin 20.0 mg/dL (20-40) 02/15/23 04:00 Vancomycin Trough 15.6 mcg/mL (5.0-20.0) 02/15/23 14:00 Weight: 153 lb 12.8 oz Wound Present: Yes Closed Surgical Incision Present: No Negative Pressure Wound Therapy Present: No Physician Update: Labs were reviewed. Wound care is involved but has not yet applied. BIMS 06/22 and SLUMMS . Poor cognitive functioning with decreased working memory. Min assistance bed mobility, 300' with RW, up and down 10 steps all with contact guard assistance. CGA with ADLs. Summary: Patient's care plan and long term care pharmacist goals have been reviewed and revised as necessary. Please see the Rehabilitation Signature page for all necessary signatures.
[2023-02-16] MEDS ORDERED: POLYVINYL ALCOHOL 1.4% 15 ML EACH EYE PRN (14:00)
[2023-02-16] MEDS: VANCOMYCIN 1 GM in NA CHLORIDE 0.9% 250 ML IVPB SCH (15:27)
[2023-02-16] MEDS: RIVAROXABAN 10 MG TABLET PO SCH (16:47)
[2023-02-16] MEDS ORDERED: DOCUSATE NA/SENNA CONC 1 TAB PO PRN (17:11)
[2023-02-16] MEDS: ATORVASTATIN 80 MG TAB PO SCH (19:49)
[2023-02-16] MEDS: MELATONIN 3 MG TABLET PO SCH (19:50)
[2023-02-17] MEDS: CEFEPIME 1 GM in NA CHLORIDE 0.9% 100 ML IV SCH ×3 (00:32→17:19)
[2023-02-17] MEDS: [UNRECOGNIZED DRUG - OTHER] TOP SCH (08:00)
[2023-02-17] MEDS: NYSTATIN PWDR 100000 UNIT/GM TOP SCH ×2 (08:20→19:51)
[2023-02-17] MEDS: AMIODARONE HCL 200 MG TAB PO SCH (08:21)
[2023-02-17] MEDS: ASPIRIN 81 MG CHEWABLE TABLET PO SCH (08:21)
[2023-02-17] MEDS: MELOXICAM 7.5 MG TAB PO SCH (08:26)
--- NOTE | 2023-02-17 09:16 | RAD REPORT ---
EXAM DESCRIPTION: RAD - Chest Single View - 02/17/2023 8:57 am CLINICAL HISTORY: picc line placement COMPARISON: Chest Single View dated 08/13/2021 FINDINGS: Lines: None. Lungs: No evidence of edema or pneumonia. Pleural: No significant pleural effusions or pneumothorax. Cardiac: The heart size is within normal limits. Mediastinum: Within normal limits. Bones: No acute fractures. Other: None IMPRESSION: No acute cardiopulmonary disease.
[2023-02-17] MEDS: VANCOMYCIN 1 GM in NA CHLORIDE 0.9% 250 ML IVPB SCH (15:46)
[2023-02-17] MEDS: RIVAROXABAN 10 MG TABLET PO SCH (16:46)
[2023-02-17] MEDS: ATORVASTATIN 80 MG TAB PO SCH (19:54)
[2023-02-17] MEDS: MELATONIN 3 MG TABLET PO SCH (19:54)
--- NOTE | 2023-02-17 20:04 | RAD REPORT ---
EXAM DESCRIPTION: RAD - Abdomen 1 View (KUB) - 02/17/2023 7:46 pm CLINICAL HISTORY: check placemenet of peritoneal drain (suprapubic) COMPARISON: No comparisons FINDINGS: Nonobstructive bowel gas pattern. No acute osseous abnormality.Visualized lungs are unrema rkable.No abnormal calcifications. Gastrostomy tube present. Pigtail catheter overlies the right aspe ct of the anatomic pelvis . Severe left hip degenerative changes and deformity. IMPRESSION: Nonobstructive bowel gas pattern. Gastrostomy tube overlying the stomach and pigtail cat heter overlying the right aspect of the anatomic pelvis
[2023-02-18] MEDS ORDERED: NA CHLORIDE 0.9% 250 ML ONE (00:05)
[2023-02-18] MEDS: CEFEPIME 1 GM in NA CHLORIDE 0.9% 100 ML IV SCH ×3 (00:35→17:04)
[2023-02-18 03:33] LABS: Specific Gravity 1.011 (1.005-1.030); Urine Bacteria <20 /HPF (<20); Urine Bilirubin NEGATIVE (Negative); Urine Blood Negative (Negative); Urine Clarity Clear (Clear); Urine Color Colorless (Yellow); Urine Glucose NEGATIVE (Negative); Urine Mucus Slight /HPF (None Seen); Urine Protein NEGATIVE (Negative); Urine RBC <5 /HPF (None Seen); Urine Urobilinogen Normal (Normal)
[2023-02-18] MEDS: MELOXICAM 7.5 MG TAB PO SCH (07:36)
[2023-02-18] MEDS: AMIODARONE HCL 200 MG TAB PO SCH (07:36)
[2023-02-18] MEDS: ASPIRIN 81 MG CHEWABLE TABLET PO SCH (07:37)
[2023-02-18] MEDS: NYSTATIN PWDR 100000 UNIT/GM TOP SCH ×2 (09:16→20:04)
[2023-02-18] MEDS: [UNRECOGNIZED DRUG - OTHER] TOP SCH (10:19)
[2023-02-18] MEDS: VANCOMYCIN 1 GM in NA CHLORIDE 0.9% 250 ML IVPB SCH (14:59)
[2023-02-18] MEDS: RIVAROXABAN 10 MG TABLET PO SCH (17:04)
--- NOTE | 2023-02-18 18:56 | RAD REPORT ---
EXAM DESCRIPTION: CT - Abdomen Pelvis Wo Contrast - 02/18/2023 6:47 pm CLINICAL HISTORY: Abdominal pain. Drain placement COMPARISON: No comparisons TECHNIQUE: CT imaging of the abdomen and pelvis was performed without contrast. Solid organ, bowel a nd vascular assessment is limited due to lack of IV and oral contrast. All CT scans are performed using dose optimization technique as appropriate and may include automated exposure control or mA/KV adjustment according to patient size. FINDINGS: The lower lung soler are clear.Gastrostomy tube is in appropriate position. Several galls tones are present in the gallbladder. The liver, spleen, pancreas, adrenal glands and kidneys are within normal limits for a limited non-co ntrast examination. No bowel obstruction, free air, free fluid or abscess. Pigtail catheter is noted in the right lower q uadrant anteriorly. No significant fluid is present surrounding the catheter tip. Nonvisualized appen isidro. Advanced degenerative changes present involving the left hip. Moderate lumbar degenerative changes. IMPRESSION: Pigtail catheter is in place right lower quadrant anterior intra-abdominal fat. No signi ficant surrounding fluid collection. Gastrostomy tube is in place. Cholelithiasis. A limited non-contrast examination was performed as detailed.
[2023-02-18] MEDS: ATORVASTATIN 80 MG TAB PO SCH (20:04)
[2023-02-18] MEDS: MELATONIN 3 MG TABLET PO SCH (20:04)
[2023-02-19] MEDS: CEFEPIME 1 GM in NA CHLORIDE 0.9% 100 ML IV SCH ×3 (00:35→17:15)
[2023-02-19] MEDS: MELOXICAM 7.5 MG TAB PO SCH (07:00)
[2023-02-19] MEDS: ASPIRIN 81 MG CHEWABLE TABLET PO SCH (07:00)
[2023-02-19] MEDS: AMIODARONE HCL 200 MG TAB PO SCH (07:01)
[2023-02-19] MEDS: NYSTATIN PWDR 100000 UNIT/GM TOP SCH ×2 (10:28→19:37)
[2023-02-19] MEDS: [UNRECOGNIZED DRUG - OTHER] TOP SCH (13:50)
--- NOTE | 2023-02-19 14:17 | PN ---
Date of Progress Note: 02/19/2023 Time Of Service: 8:35 a.m. Subjective: Ms. Strauss is in the dining area, eating breakfast, in no significant distress. No comp laints. There is improved cognitive functioning. Review of Systems: No fevers, chills, nausea, vomiting. No significant myalgias, arthralgias, rash, headache, weight ch florin. Physical Examination: Vital Signs: Blood pressure 122/56, pulse 69, respiratory rate 16, temperature 97.6, oxygen saturati on 97%. Weight 155 pounds. Height 5 feet 6 inches. BMI 25. General: Carlos A is sitting, eating breakfast, in no significant distress. HEENT: Normocephalic, atraumatic. Sclerae are anicteric. Oropharynx moist. Neck: Supple. Chest: Clear. Heart: Regular. Extremities: Show no significant clubbing, cyanosis, or edema. Neurological: Diffuse weakness upper and lower extremities. No focal deficits. Laboratory Studies: White blood cell 5.6, hemoglobin 10.5, platelets 274. Chemistry: Sodium 140, p otassium 3.5, carbon dioxide 25, BUN 25, creatinine 1.03, prealbumin is 20. Vancomycin trough on the was normal at 14, is pending for today. X-ray imaging of abdomen and pelvis CT scan done on 01/19/2023 because of abdominal pain showed pigta il catheters in place in the right lower quadrant anterior intraabdominal fat. No significant surrou nding fluid collection. The gastrostomy tube is in place. There is cholelithiasis. There is no bow el obstruction, free air or abscess. A KUB x-ray done on 02/17/2023 showed nonobstructive bowel gas pattern. A gastrostomy tube overlying the stomach, and pigtail catheter overlying the right aspect o f the anatomical pelvis. Chest x-ray from 02/17/2023 showed no acute cardiopulmonary processes. Medications: Amiodarone 100 mg daily, Artificial Tears 1 drop in each eye daily, aspirin 81 mg daily , Lipitor 20 mg at bedtime, cefepime 1 g every 8 hours from 03/01/2017, Atrovent nebulizer 0.5 mg taurus ry 6 hours as needed, melatonin 3 mg at night, Mobic 15 mg daily, Xarelto 10 mg daily, Senokot-S 2 at bedtime, vancomycin 1 g every 24 hours. Current Functional Status: Currently, Ms. Strauss ambulated 400 feet, 200 feet, 300 feet with contact guard to standby assistance using a rolling walker. She did have foot drag, but did well despite th at. Progress Towards Rehabilitation Goals: Ms. Strauss is making great progress towards her goals of beco segundo independent with upper body dressing, transferring, toileting, showering, ambulating 400 feet no w 500 feet with modified independence, going up and down 10 steps with modified independence. Also t o continue performing cognitive functioning independently, making great progress as well. Assessments And Plan: Ms. Strauss is a 72-year-old patient in the rehabilitation unit with toxic meta bolic encephalopathy. She has coronary artery disease, dementia, dyslipidemia, hypertension. She nascimento s a pelvic abscess, wound VAC is off. She has a right kidney lesion, poor oral intake and atrial fib rillation. Plan: 1.Continue with physical, occupational and speech therapy 3.5 hours 5-7 days. 2.Xarelto for atrial fibrillation. 3.Senokot S for constipation. 4.Vancomycin and cefepime for optimal abscess. 5.Lipitor for dyslipidemia, amiodarone for hypertension, ipratropium nebulizer for COPD, Mobic for a rthritis, Senokot-S for constipation. Comordids That Continue To Impact Rehabilitation Process: Given the placement of a wound VAC on the wound which is making poor contact that is an ongoing issue, she does have multiple antibiotics and h as been doing well in terms of no signs of any spread of infection such as systemic findings relating to white blood cell count or fever and she is otherwise doing well desp ite the challenges. LB/MODL Voice ID: [id number] Report ID: [id number]
--- NOTE | 2023-02-19 14:43 | P.CNS ---
Date of Consult: 02/18/23 PC: I was asked to see this will need on hold yesterday regarding numerous catheters that the patient had placed and whether or not they were able to be removed. HPC: Patient apparently had a stroke, also had intervention requiring a catheterization. Appears she has developed a intraperitoneal hematoma. It was drained with a pigtail catheter. The patient was also treated with a feeding tube as she had dysphagia. PSHX: Insertion of pigtail catheter, gastrostomy tube Social Hx: Allergic to codeine, erythromycin, penicillin Sys R: Patient states she is doing much better now, working through her rehab. O/E: Awake alert stable. HEENT: Not jaundiced Chest: Chest movement equal bilaterally Abd: Has a gastrostomy tube in place, not being used, skin looks clean. Patient has a catheter in the right groin area. [place]: NAD Data: Negative Impression: This patient was transferred from another facility to have been ask ed to see this patient in regards to a drain and a gastrostomy tube and whether or not we were able to remove them. Plan: I I will order CT scan without contrast that we least can find out where these tubes are actually positioned and what they are actually draining. When we have this information we can make better determination on the removal of these catheters.
--- NOTE | 2023-02-19 14:45 | P.PN ---
Date of Service: 02/19/[address] scan it appears that this catheter in the right groin is not serving any purpose at the moment and may be removed. She does have a G-tube, it is in place the skin is clean and does not require any intervention at the moment. I am reluctant to remove that at this time just in case it is required again. I explained to the patient that if it is pulled out it makes it difficult to put back in we will leave it for [address] Calhoun is sure the patient does not require any further feeding, it can be removed. I will check with him tomorrow. In the meantime the pigtail catheter was removed with no sequelae, sterile dressing has been applied.
[2023-02-19] MEDS: VANCOMYCIN 1 GM in NA CHLORIDE 0.9% 250 ML IVPB SCH (15:14)
[2023-02-19] MEDS: RIVAROXABAN 10 MG TABLET PO SCH (17:15)
[2023-02-19] MEDS ORDERED: VANCOMYCIN 1 GM/VIAL ONE (17:20)
[2023-02-19] MEDS: MELATONIN 3 MG TABLET PO SCH (19:40)
[2023-02-19] MEDS: ATORVASTATIN 80 MG TAB PO SCH (19:40)
[2023-02-19] MEDS ORDERED: NA CHLORIDE 0.9% 250 ML ONE (22:28)
[2023-02-20] MEDS: CEFEPIME 1 GM in NA CHLORIDE 0.9% 100 ML IV SCH ×3 (00:05→17:17)
[2023-02-20] MEDS: [UNRECOGNIZED DRUG - OTHER] TOP SCH (08:00)
[2023-02-20] MEDS: ASPIRIN 81 MG CHEWABLE TABLET PO SCH (08:48)
[2023-02-20] MEDS: AMIODARONE HCL 200 MG TAB PO SCH (08:48)
[2023-02-20] MEDS: MELOXICAM 7.5 MG TAB PO SCH (08:49)
[2023-02-20] MEDS: NYSTATIN PWDR 100000 UNIT/GM TOP SCH ×2 (08:49→18:50)
[2023-02-20] MEDS: VANCOMYCIN 1 GM in NA CHLORIDE 0.9% 250 ML IVPB SCH (14:59)
[2023-02-20] MEDS: RIVAROXABAN 10 MG TABLET PO SCH (17:17)
[2023-02-20] MEDS: ATORVASTATIN 80 MG TAB PO SCH (19:12)
[2023-02-20] MEDS: MELATONIN 3 MG TABLET PO SCH (19:12)
--- NOTE | 2023-02-20 23:12 | PN ---
Date of Progress Note: 02/20/2023 [id number][id number] Progress Note Visit Time Of Service: 1:30 p.m. Subjective: Ms. Strauss is in her room in between therapy sessions. She is in no acute distress and has no complaints. She is happy with therapy and not confused. Review of Systems: No fevers, chills, nausea, vomiting, myalgias, arthralgias, rash, headache, or weight change. She nascimento s actually had a visit from Dr. Gaines yesterday and he did evaluate the patient and subsequently nascimento shahla a CT scan to observe the placement of her catheter in the right groin and noted it did not appear t o serve any service such as a drain and said that it may be removed. She did have a G-tube. He said that may remain in place especially if she would need to have tube feedings in the future. Physical Examination: Vital Signs: Blood pressure 140/66, pulse 79, respiratory rate 17, temperature 97.8, and oxygen satu ration 99%. General: Ms. Strauss is resting comfortably. She appears to be in no acute distress. HEENT: She is normocephalic, atraumatic. Sclerae anicteric. Oropharynx pink and moist. Neck: Supple. Heart: Regular. Extremities: No cyanosis, clubbing, or edema. Neurologic: No focal deficits, just mild diffuse, but improved weakness in the upper and lower extre mities. Laboratory Studies: No new laboratory studies except vancomycin trough was 14.2 yesterday. X-ray/imaging: No new x-ray or images other than what was done on the and on the . Medications: Her medications have been reviewed and remain unchanged. Current Functional Status: Today she did multiple zgg-dx-twrwn transfers independently using a rolli ng walker. She performs eghezt-mn-ddw transfers independently. She ambulated 250 feet twice, 400 fe et once, and 500 feet once independently using a rolling walker. She ascended and descended 15 steps independently using bilateral handrails. With occupational therapy, she independently performed ora l hygiene standing at the sink and tolerated 10 minutes with activities of daily living in the kitche n with a rolling walker. No loss of balance. With speech therapy, she demonstrated auditory compreh ension for simple passage with 75% accuracy. Progress Towards Rehabilitation Goals: Ms. Strauss has made excellent progress towards her goals of i ndependence with upper and lower body dressing, transferring, toileting, ambulating up to 500 feet in dependently, and performing activities of daily living independently. She is mildly impaired in term s of cognitive functioning, but does well with supervision. Assessment: Ms. Strauss is a 72-year-old patient in the rehabilitation unit with toxic metabolic ence phalopathy who has recovered very well and is doing excellent with her therapy. She has coronary art taina disease, dementia, dyslipidemia, hypertension, and pelvic abscess with the drain removed and was evaluated by Dr. Gaines. No wound VAC is required. She has atrial fibrillation and poor oral intak e, but is adequate in terms of her nutrition. Plan: 1.For now she will continue with physical, occupational, and speech therapy for 3.5 hours daily and plan is for her to discharge in the morning. 2.Continue with Xarelto for atrial fibrillation and Senokot for constipation. 3.She will finish with the vancomycin and cefepime. 4.Continue with amiodarone for hypertension, Lipitor for dyslipidemia, and Mobic for arthritis. Comorbids That Continue To Impact Her Rehabilitation: She is off the wound VAC and has done very wel l. She does not need a drain and she has been cleared by the surgeon, Dr. Gaines. She will continu e and finish her antibiotics and will be discharged home. She will have Home Health and they will follow h er wound as well. ROBYN/SURESH Voice ID: [id number] Report ID: [id number]
[2023-02-21] MEDS: CEFEPIME 1 GM in NA CHLORIDE 0.9% 100 ML IV SCH ×3 (00:11→17:09)
[2023-02-21 07:16] VITALS: BP 115/54; TEMP 97
[2023-02-21] MEDS: [UNRECOGNIZED DRUG - OTHER] TOP SCH (08:00)
[2023-02-21] MEDS: AMIODARONE HCL 200 MG TAB PO SCH (08:47)
[2023-02-21] MEDS: NYSTATIN PWDR 100000 UNIT/GM TOP SCH (08:47)
[2023-02-21] MEDS: ASPIRIN 81 MG CHEWABLE TABLET PO SCH (08:47)
[2023-02-21] MEDS: MELOXICAM 7.5 MG TAB PO SCH (09:34)
[2023-02-21] MEDS: VANCOMYCIN 1 GM in NA CHLORIDE 0.9% 250 ML IVPB SCH (14:18)
[2023-02-21] MEDS: RIVAROXABAN 10 MG TABLET PO SCH (17:09)
== END 2023-02-21 17:50 | disposition home health service (06) | DRG 947 ==
LOC: 5TH 02-14 09:55
PROVIDERS: ADMIT Psychiatry & Neurology Neurology with Special Qualifications in Child Neurology; ATTEND Psychiatry & Neurology Neurology with Special Qualifications in Child Neurology
DX: R53.81 Other malaise (principal); G92.8 Other toxic encephalopathy; I48.91 Unspecified atrial fibrillation; I10 Essential (primary) hypertension; E78.5 Hyperlipidemia, unspecified; F32.A Depression, unspecified; F41.9 Anxiety disorder, unspecified; F03.90 Unspecified dementia, unspecified severity, without behavioral disturbance, psychotic disturbance, mood disturbance, and anxiety; M19.90 Unspecified osteoarthritis, unspecified site; I25.10 Atherosclerotic heart disease of native coronary artery without angina pectoris; E66.9 Obesity, unspecified; E83.52 Hypercalcemia; G47.00 Insomnia, unspecified; K59.00 Constipation, unspecified; N73.9 Female pelvic inflammatory disease, unspecified; Z68.25 Body mass index [BMI] 25.0-25.9, adult; Z93.1 Gastrostomy status
CPT/HCPCS: 36415; 71045; 74018; 74176; 80048; 80202; 81001; 82040; 83735; 84134; 85025; 87086; 87088; 92523; 94010; 97110; 97112; 97116; 97129; 97161; 97165; 97530; 97542; J0692; J7050